=== PATIENT | female | born 1960 ===

== ENCOUNTER 2017-08-15 13:43 | Emergency (ER) | payer SELFPAY ==
[2017-08-15 14:01] VITALS: BP 146/82; PULSE 105; RESP 18; TEMP 99.1; O2SAT 97
[2017-08-15] MEDS ORDERED: Lidocaine 1% w Epi 1:100,000 Inj INJ STA (14:55)
[2017-08-15] MEDS ORDERED: Bacitracin 500 Units/gm Oint Foilpak UD TOP STA (14:55)
[2017-08-15] MEDS ORDERED: Tetanus/Diphtheria Toxoids 0.5 ml Syringe IM ONE ×2 (14:55→15:02)
[2017-08-15] MEDS ORDERED: Lidocaine 2% w Epi 1:100,000 Inj IJ ONE (15:01)
[2017-08-15] MEDS ORDERED: Bacitracin 500 Units/gm Oint Foilpak UD ONE (15:01)
--- NOTE | 2017-08-15 15:50 | C.PDOC ---
History Of Present Illness 57 y/o female presents to the ER for evaluation after she tripped and fell on her knees in front of the house in the driveway. Patient has 2 lacerations on the left knee. Patient denies LOC, dizziness, and other complaints. Time Seen by Provider: 08/15/17 14:12 Chief Complaint (Nursing): Abnormal Skin Integrity History Per: Patient History/Exam Limitations: no limitations Onset/Duration Of Symptoms: Hrs Current Symptoms Are (Timing): Still Present Severity: Moderate Past Medical History Reviewed: Historical Data, Nursing Documentation, Vital Signs Vital Signs: Last Vital Signs Temp 99.1 F 08/15/17 13:58 Pulse 105 H 08/15/17 13:58 Resp 18 08/15/17 13:58 BP 146/82 08/15/17 13:58 Pulse Ox 97 08/15/17 21:56 - Medical History PMH: No Chronic Diseases Surgical History: No Surg Hx Family History: States: No Known Family Hx - Social History Hx Alcohol Use: No Hx Substance Use: No - Immunization History Hx Tetanus Toxoid Vaccination: Yes Hx Influenza Vaccination: No Hx Pneumococcal Vaccination: No Review Of Systems Except As Marked, All Systems Reviewed And Found Negative. Musculoskeletal: Positive for: Other (left knee pain) Neurological: Negative for: Dizziness Physical Exam - Physical Exam Appears: Non-toxic, No Acute Distress Skin: Normal Color, Warm Head: Atraumatic, Normacephalic Nose: Normal Oral Mucosa: Moist Neck: Supple Chest: Symmetrical Cardiovascular: Rhythm Regular Respiratory: Normal Breath Sounds, No Accessory Muscle Use, No Rales, No Rhonchi , No Wheezing Extremity: No Tenderness (bony tenderness), No Swelling, Other (2 horizontal lacerations on left knee (1st laceration-2 cm, 2nd laceration- 1 cm), no edema) ED Course And Treatment O2 Sat by Pulse Oximetry: 97 (RA) Pulse Ox Interpretation: Normal Progress Note: Knee immobilizer applied by RN and crutches provided by Tech.Patient has been given Keflex IM and TD IM. Patient has been discharged and told to follow up with orthopedist in 1-2 days. Laceration - Laceration Repair Left Knee Wound Length (In cm): 3 cm Description Of Wound: Irregular Wound Cleansed With: Sterile Saline Anesthesia: Lidocaine 2%, With Epi Wound Examination: Irrigated With Saline Wound Closure: Suture (3-0 Nylon) Suture Technique And Material Used: Interrupted, Nylon Wound Complexity: Intermediate Left Knee Lac Wound Length (In cm): 1 cm Description Of Wound: Irregular Anesthesia: Lidocaine 2%, With Epi Wound Examination: Irrigated With Saline Wound Closure: Suture (3-0 Nylon) Suture Technique And Material Used: Interrupted, Nylon Wound Complexity: Intermediate Disposition - Disposition Referrals: Home Sidhu MD [Staff Provider] - Disposition: HOME/ ROUTINE Disposition Time: 15:45 Condition: STABLE Additional Instructions: Follow up with Orthopedist within 1-2 days. Return to ED if feel worse. Prescriptions: Bacitracin OINT 1 applic TP TID #45 g Cephalexin [Keflex] 500 mg PO Q6 #28 cap Instructions: Laceration (ED) Forms: [employer] (Citizen Of [place]) Print Language: KAZAKH - Clinical Impression Clinical Impression: Knee laceration - PA / DIP FILLER / Resident Statement MD/DO has reviewed & agrees with the documentation as recorded. - Scribe Statement The provider has reviewed the documentation as recorded by the Marisa Johns Provider Attestation All medical record entries made by the Shanibfrancesca were at my direction and personally dictated by me. I have reviewed the chart and agree that the record accurately reflects my personal performance of the history, physical exam, medical decision making, and the department course for this patient. I have also personally directed, reviewed, and agree with the discharge instructions and disposition.
== END 2017-08-15 16:14 | disposition home or self-care (01) ==
LOC: C.ER 13:43
DX: S81.012A Laceration without foreign body, left knee, initial encounter (principal); W01.0XXA Fall on same level from slipping, tripping and stumbling without subsequent striking against object, initial encounter; Z23 Encounter for immunization